=== PATIENT | female | born 1990 | race Caucasian/White ===

== ENCOUNTER 2020-01-08 19:27 | Emergency (ER) | payer MEDICAID ==
--- NOTE | 2020-01-08 20:00 | EDM.PDOC ---
ED HPI GENERAL MEDICAL PROBLEM - General Chief Complaint: General Stated Complaint: TOOTH PAIN Time Seen by Provider: 01/08/20 19:40 Source of Information: Reports: Patient History Limitations: Reports: No Limitations - History of Present Illness INITIAL COMMENTS - FREE TEXT/NARRATIVE: 29 YO WF presents to ER complaining of a toothache since 2pm today. Pt reports she has a broken 2nd right lower molar for approximately 6 months and today her tooth started to throb and became very painful prompting ER evaluation. Pt denies any swelling to her jaw or face and no drainage from tooth or mouth. Pt denies any other complaints at this time. Onset: Today Location: Reports: Face Quality: Reports: Ache Severity: Moderate Improves with: Reports: None Worsens with: Reports: None Associated Symptoms: Reports: No Other Symptoms Right Lower Tooth/Teeth Pain Score (Numeric/FACES): 8 - Related Data Allergies Allergy/AdvReac Type Severity Reaction Status Date / Time No Known Drug Allergies Allergy Other Verified 01/08/20 19:30 Home Meds: Home Meds Amoxicillin 500 mg PO TID #21 tab 01/08/20 [Rx] Hydrocodone/Acetaminophen [Hydrocodone-Acetamin 10-325 mg] 1 each PO Q6HR PRN # 5 tablet 01/08/20 [Rx] Past Medical History - Past Health History Medical/Surgical History: Denies Medical/Surgical History Psychiatric History: Reports: Anxiety, Depression Dermatologic History: Reports: Other (See Below) (Acne vulgaris) Social & Family History - Tobacco Use Smoking Status *Q: Former Smoker Used Tobacco, but Quit: Yes Month/Year Tobacco Last Used: November 2019 - Caffeine Use Caffeine Use: Reports: None - Recreational Drug Use Recreational Drug Use: No ED ROS GENERAL - Review of Systems Review Of Systems: See Below Constitutional: Reports: No Symptoms HEENT: Reports: Dental Pain Respiratory: Reports: No Symptoms Cardiovascular: Reports: No Symptoms Endocrine: Reports: No Symptoms GI/Abdominal: Reports: No Symptoms : Reports: No Symptoms Musculoskeletal: Reports: No Symptoms Skin: Reports: No Symptoms Neurological: Reports: No Symptoms Psychiatric: Reports: No Symptoms Hematologic/Lymphatic: Reports: No Symptoms Immunologic: Reports: No Symptoms ED EXAM, GENERAL - Physical Exam Exam: See Below Exam Limited By: No Limitations General Appearance: Alert, WD/WN, No Apparent Distress Nose: Normal Inspection, Normal Mucosa, No Blood Throat/Mouth: Other (broken lower right 2nd molar ) Head: Atraumatic, Normocephalic Neck: Normal Inspection, Supple, Non-Tender, Full Range of Motion Respiratory/Chest: No Respiratory Distress, Lungs Clear, Normal Breath Sounds, No Accessory Muscle Use, Chest Non-Tender Cardiovascular: Normal Peripheral Pulses, Regular Rate, Rhythm, No Edema, No Gallop, No JVD, No Murmur, No Rub GI/Abdominal: Normal Bowel Sounds, Soft, Non-Tender, No Organomegaly, No Distention, No Abnormal Bruit, No Mass Back Exam: Normal Inspection, Full Range of Motion, NT Extremities: Normal Inspection, Normal Range of Motion, Non-Tender, Normal Capillary Refill, No Pedal Edema Neurological: Alert, Oriented, CN II-XII Intact, Normal Cognition, Normal Gait, Normal Reflexes, No Motor/Sensory Deficits Psychiatric: Normal Affect, Normal Mood Skin Exam: Warm, Dry, Intact, Normal Color, No Rash Lymphatic: No Adenopathy Course - Vital Signs Last Recorded V/S: Last Vital Signs Temp 36.8 C 01/08/20 19:30 Pulse 89 01/08/20 19:30 Resp 20 01/08/20 19:30 BP 129/83 01/08/20 19:30 Pulse Ox 96 01/08/20 19:30 - Orders/Labs/Meds Meds: Medications Discontinued Medications Generic Name Dose Route Start Last Admin Trade Name Freq PRN Reason Stop Dose Admin Hydrocodone Bitart/Acetaminophen 5 tab 01/08/20 20:04 [place] 325-10 Mg PO 01/08/20 20:05 ONETIME ONE Amoxicillin 2,000 mg 01/08/20 20:04 Amoxil PO 01/08/20 20:05 ONETIME ONE Amoxicillin 500 mg 01/08/20 20:06 Amoxil PO 01/08/20 20:07 ONETIME ONE Ketorolac Tromethamine 60 mg 01/08/20 20:04 Toradol IM 01/08/20 20:05 ONETIME ONE Departure - Departure Time of Disposition: 20:14 Disposition: Home, Self-Care 01 Condition: Good Clinical Impression: Toothache - Discharge Information Prescriptions: Hydrocodone/Acetaminophen [Hydrocodone-Acetamin 10-325 mg] 1 each PO Q6HR PRN # 5 tablet PRN Reason: Pain Amoxicillin 500 mg PO TID #21 tab Instructions: Acute Pain, Adult Referrals: Reddy Schwartz MD [Physician] - Forms: ED Department Discharge Sepsis Event Note - Evaluation Sepsis Screening Result: No Definite Risk - Focused Exam Vital Signs: Vital Signs Temp Pulse Resp BP Pulse Ox 01/08/20 19:30 36.8 C 89 20 129/83 96 Date Exam was Performed: 01/08/20 Time Exam was Performed: 20:07 - Assessment/Plan Assessment:: 1. toothache-broken lower right 2nd molar Plan: 1. discharge home 2. Lortab 10/325 #10 every 6 hours as needed 3. amoxil 500mg every 8 hours x 7 days 4. ibuprofen 600mg every 6 hours x 5 days 5. follow up with dentist next 5-7 days for further evaluation and treatment 6. return to ER for worsening symptoms
[2020-01-08] MEDS ORDERED: Amoxicillin 500 MG Cap PO ONE ×2 (20:04→20:06)
[2020-01-08] MEDS ORDERED: Ketorolac 60 MG/2 ML SDV IM ONE (20:04)
[2020-01-08] MEDS ORDERED: Acetaminophen/HYDROcodone 325-10 MG Tab PO ONE (20:04)
== END 2020-01-08 20:45 | disposition home or self-care (01) ==
LOC: KA.ED 19:27
DX: K08.89 Other specified disorders of teeth and supporting structures (principal); Z87.891 Personal history of nicotine dependence
CPT/HCPCS: 96372; 99282; A9270-GY; J1885

== ENCOUNTER 2020-02-01 18:40 | Emergency (ER) | payer MEDICAID ==
[2020-02-01] MEDS ORDERED: Ondansetron 4 MG/2 ML SDV IVPUSH ONE (18:56)
[2020-02-01] MEDS ORDERED: Sodium Chloride 0.9% 1,000 ML IV ONE (18:57)
--- NOTE | 2020-02-01 19:18 | EDM.PDOC ---
ED HPI GENERAL MEDICAL PROBLEM - General Chief Complaint: General Stated Complaint: N/V, DIZZY, FEVER Time Seen by Provider: 02/01/20 19:13 Source of Information: Reports: Patient History Limitations: Reports: No Limitations - History of Present Illness INITIAL COMMENTS - FREE TEXT/NARRATIVE: Patient is a 29-year-old female who presents to the emergency department this evening via private vehicle with a complaint of nausea and vomiting. Patient states approximately 9 p.m. last evening she had an upset stomach and vomited. Had 3 episodes of vomiting in the last 24 hours. Patient states her stomach felt queasy, not really pain, and denies diarrhea or constipation. Patient states she is sexually active, however is on control. Patient has a history of frequent UTIs. Patient denies vaginal discharge, fever, out of area travel, flank pain, dysuria, shortness of breath, or any covid concerns. Onset: Gradual Onset Time: 21:00 Duration: Day(s): Location: Reports: Abdomen Quality: Reports: Ache Severity: Mild Improves with: Reports: None Worsens with: Reports: None Associated Symptoms: Reports: Nausea/Vomiting Right Lower Abdomen Pain Score (Numeric/FACES): 6 - Related Data Allergies Allergy/AdvReac Type Severity Reaction Status Date / Time No Known Drug Allergies Allergy Other Verified 02/01/20 19:16 Past Medical History - Past Health History Medical/Surgical History: Denies Medical/Surgical History Psychiatric History: Reports: Anxiety, Depression Dermatologic History: Reports: Other (See Below) (Acne vulgaris) Social & Family History - Caffeine Use Caffeine Use: Reports: None ED ROS GENERAL - Review of Systems Review Of Systems: Comprehensive ROS is negative, except as noted in HPI. Constitutional: Reports: No Symptoms HEENT: Reports: No Symptoms Respiratory: Reports: No Symptoms Cardiovascular: Reports: No Symptoms Endocrine: Reports: No Symptoms GI/Abdominal: Reports: Abdominal Pain, Nausea, Vomiting : Reports: No Symptoms Musculoskeletal: Reports: No Symptoms Skin: Reports: No Symptoms Neurological: Reports: No Symptoms Psychiatric: Reports: No Symptoms Hematologic/Lymphatic: Reports: No Symptoms Immunologic: Reports: No Symptoms ED EXAM, GENERAL - Physical Exam Exam: See Below Exam Limited By: No Limitations General Appearance: Alert, WD/WN, No Apparent Distress Throat/Mouth: Normal Inspection, Normal Oropharynx, No Airway Compromise Neck: Normal Inspection. No: Lymphadenopathy (L), Lymphadenopathy (R) Respiratory/Chest: No Respiratory Distress, Lungs Clear, Normal Breath Sounds, No Accessory Muscle Use, Chest Non-Tender Cardiovascular: Regular Rate, Rhythm, No Murmur GI/Abdominal: Normal Bowel Sounds, Soft, Non-Tender, No Organomegaly, No Distention, No Abnormal Bruit, No Mass Back Exam: Normal Inspection. No: CVA Tenderness (L), CVA Tenderness (R) Extremities: Normal Inspection Neurological: Alert, Oriented, Normal Cognition Psychiatric: Normal Affect, Normal Mood Skin Exam: Warm, Dry, Intact, Normal Color, No Rash Lymphatic: No Adenopathy Course - Vital Signs Last Recorded V/S: Last Vital Signs Temp 97 F 02/01/20 19:08 Pulse 96 02/01/20 19:08 Resp 18 02/01/20 19:08 BP 111/73 02/01/20 19:08 Pulse Ox 96 02/01/20 19:08 - Orders/Labs/Meds Orders: Active Orders 24 hr Category Date Time Status CULTURE URINE [RM] Stat Lab 02/01/20 20:03 Ordered Labs: Laboratory Tests 02/01/20 02/01/20 02/01/20 Range/Units 18:55 18:55 19:00 WBC 16.44 H (5.00-10.00) 10^3/uL RBC 4.39 (3.80-5.50) 10^6/uL Hgb 13.4 (12.0-16.0) g/dL Hct 39.1 (37.0-47.0) % MCV 89.1 (82.0-92.0) fL MCH 30.5 (27.0-31.0) pg MCHC 34.3 (32.0-36.0) g/dL RDW 11.8 (11.5-14.5) % Plt Count 207 (150-400) 10^3/uL MPV 10.3 (7.4-10.4) fL Immature Gran % (Auto) 0.2 (0.0-5.0) % Neut % (Auto) 87.0 H (50.0-70.0) % Lymph % (Auto) 8.7 L (20.0-40.0) % [place] % (Auto) 3.8 (2.0-8.0) % Eos % (Auto) 0.2 L (1.0-3.0) % Baso % (Auto) 0.1 (0.0-1.0) % Neut # (Auto) 14.32 H (2.50-7.00) 10^3/uL Lymph # (Auto) 1.43 (1.00-4.00) 10^3/uL [place] # (Auto) 0.62 (0.10-0.80) 10^3/uL Eos # (Auto) 0.03 L (0.10-0.30) 10^3/uL Baso # (Auto) 0.01 (0.00-0.10) 10^3/uL Immature Gran # (Auto) 0.03 (0.00-0.50) 10^3/uL Sodium 139 (136-145) mmol/L Potassium 3.4 (3.3-5.3) mmol/L Chloride 104 (98-115) mmol/L Carbon Dioxide 25.3 (21.0-32.0) mmol/L Anion Gap 13.1 (5-15) mmol/L BUN 11 (6-25) mg/dL Creatinine 0.65 (0.51-1.17) mg/dL Est Cr Clr Drug Dosing 114.91 mL/min Estimated GFR (MDRD) > 60 mL/min Glucose 91 (75 - 99) mg/dL Calcium 8.7 (8.7-10.3) mg/dL Total Bilirubin 0.5 (0.2-1.0) mg/dL AST 19 (15-37) U/L ALT 25 (12-78) U/L Alkaline Phosphatase 72 (46-116) IU/L Total Protein 8.2 (6.4-8.2) g/dL Albumin 4.61 (3.00-4.80) g/dL HCG, Quant 1 mIU/mL Specimen Type Urincc Urine Color Yellow (YELLOW) Urine Appearance Slightly cloudy H (CLEAR) Urine pH 5.5 (5.0-9.0) Ur Specific [place] 1.025 (1.005-1.030) Urine Protein Negative (NEGATIVE) mg/dL Urine Glucose (UA) Negative (NEGATIVE) mg/dL Urine Ketones Negative (NEGATIVE) mg/dL Urine Occult Blood Moderate H (NEGATIVE) Urine Nitrite Negative (NEGATIVE) Urine Bilirubin Negative (NEGATIVE) Urine Urobilinogen 0.2 (0.2-1.0) E.U./dL Ur Leukocyte Esterase Trace H (NEGATIVE) Urine RBC 5-10 H (0-5) /HPF Urine WBC 10-20 H (0-5) /HPF Ur Epithelial Cells Moderate H /LPF Amorphous Sediment Moderate H (0/HPF) /HPF Urine Bacteria Few (NONE TO FEW) /HPF 02/01/20 Range/Units 19:45 WBC (5.00-10.00) 10^3/uL RBC (3.80-5.50) 10^6/uL Hgb (12.0-16.0) g/dL Hct (37.0-47.0) % MCV (82.0-92.0) fL MCH (27.0-31.0) pg MCHC (32.0-36.0) g/dL RDW (11.5-14.5) % Plt Count (150-400) 10^3/uL MPV (7.4-10.4) fL Immature Gran % (Auto) (0.0-5.0) % Neut % (Auto) (50.0-70.0) % Lymph % (Auto) (20.0-40.0) % [place] % (Auto) (2.0-8.0) % Eos % (Auto) (1.0-3.0) % Baso % (Auto) (0.0-1.0) % Neut # (Auto) (2.50-7.00) 10^3/uL Lymph # (Auto) (1.00-4.00) 10^3/uL [place] # (Auto) (0.10-0.80) 10^3/uL Eos # (Auto) (0.10-0.30) 10^3/uL Baso # (Auto) (0.00-0.10) 10^3/uL Immature Gran # (Auto) (0.00-0.50) 10^3/uL Sodium (136-145) mmol/L Potassium (3.3-5.3) mmol/L Chloride (98-115) mmol/L Carbon Dioxide (21.0-32.0) mmol/L Anion Gap (5-15) mmol/L BUN (6-25) mg/dL Creatinine (0.51-1.17) mg/dL Est Cr Clr Drug Dosing mL/min Estimated GFR (MDRD) mL/min Glucose (75 - 99) mg/dL Calcium (8.7-10.3) mg/dL Total Bilirubin (0.2-1.0) mg/dL AST (15-37) U/L ALT (12-78) U/L Alkaline Phosphatase (46-116) IU/L Total Protein (6.4-8.2) g/dL Albumin (3.00-4.80) g/dL HCG, Quant mIU/mL Specimen Type Urincc Urine Color Yellow (YELLOW) Urine Appearance Slightly cloudy H (CLEAR) Urine pH 6.0 (5.0-9.0) Ur Specific [place] 1.025 (1.005-1.030) Urine Protein Negative (NEGATIVE) mg/dL Urine Glucose (UA) Negative (NEGATIVE) mg/dL Urine Ketones 15 H (NEGATIVE) mg/dL Urine Occult Blood Moderate H (NEGATIVE) Urine Nitrite Negative (NEGATIVE) Urine Bilirubin Negative (NEGATIVE) Urine Urobilinogen 0.2 (0.2-1.0) E.U./dL Ur Leukocyte Esterase Negative (NEGATIVE) Urine RBC 5-10 H (0-5) /HPF Urine WBC 5-10 H (0-5) /HPF Ur Epithelial Cells Moderate H /LPF Amorphous Sediment Few (0/HPF) /HPF Urine Bacteria Few (NONE TO FEW) /HPF Meds: Medications Discontinued Medications Generic Name Dose Route Start Last Admin Trade Name Freq PRN Reason Stop Dose Admin Ceftriaxone Sodium 1 gm 02/01/20 19:30 02/01/20 19:55 Rocephin IVPUSH 02/01/20 19:31 1 gm ONETIME ONE Administration Sodium Chloride 1,000 mls @ 999 mls/hr 02/01/20 18:57 02/01/20 19:08 Normal Saline IV 02/01/20 19:57 999 mls/hr .BOLUS ONE Administration Ketorolac Tromethamine 30 mg 02/01/20 19:30 02/01/20 19:51 Toradol IVPUSH 02/01/20 19:31 30 mg ONETIME ONE Administration Ondansetron HCl 4 mg 02/01/20 18:56 02/01/20 19:08 Zofran IVPUSH 02/01/20 18:57 4 mg ONETIME ONE Administration Ondansetron HCl 8 mg 02/01/20 20:07 Zofran Odt PO 02/01/20 20:08 ONETIME ONE - Re-Assessments/Exams Free Text/Narrative Re-Assessment/Exam: 02/01/20 20:07 Patient afebrile, vital signs stable, nausea resolved. She will follow-up with PCP Departure - Departure Time of Disposition: 20:08 Disposition: Home, Self-Care 01 Condition: Good Clinical Impression: UTI, Urinary tract infectious disease - Discharge Information Instructions: Urinary Tract Infection, Adult, [id number] Referrals: Callie Barone MD [Primary Care Provider] - Forms: ED Department Discharge Additional Instructions: Follow-up with Dr. Estrada in 3-5 days for recheck. Return to emergency department sooner symptoms continue or worsen. Sepsis Event Note - Evaluation Sepsis Screening Result: Possible Sepsis Risk - Focused Exam Vital Signs: Vital Signs Temp Pulse Resp BP Pulse Ox 02/01/20 19:08 97 F 96 18 111/73 96 Date Exam was Performed: 02/01/20 Time Exam was Performed: 20:09 - My Orders Last 24 Hours: My Active Orders 02/01/20 20:03 CULTURE URINE [RM] Stat - Assessment/Plan Last 24 Hours: My Active Orders 02/01/20 20:03 CULTURE URINE [RM] Stat Assessment:: Urinary tract infection Plan: Follow-up with PCP
[2020-02-01 19:28] LABS: ANION GAP 13.1 mmol/L (5-15); CHLORIDE,CL 104 mmol/L (98-115); SODIUM,NA 139 mmol/L (136-145)
[2020-02-01] MEDS ORDERED: cefTRIAXone 1 GM Vial IVPUSH ONE (19:30)
[2020-02-01] MEDS ORDERED: Ketorolac 30 MG/ML SDV IVPUSH ONE (19:30)
[2020-02-01] MEDS ORDERED: Ondansetron 4 MG Tab.DIS PO ONE (20:07)
== END 2020-02-01 20:27 | disposition home or self-care (01) ==
LOC: KA.ED 18:40
DX: N39.0 Urinary tract infection, site not specified (principal)
CPT/HCPCS: 80053; 81001; 84702; 85025; 87086; 96361; 96374; 96375; 99284; A9270; J0696; J1885; J2405; J7030

== ENCOUNTER 2020-03-18 18:43 | Emergency (ER) | payer MEDICAID ==
[2020-03-18] MEDS ORDERED: Ketorolac 30 MG/ML SDV IM ONE (19:07)
[2020-03-18] MEDS ORDERED: Ketorolac 10 MG Tab PO PRN (19:08)
[2020-03-18] MEDS ORDERED: Ketorolac 10 MG Tab PO ONE (19:15)
--- NOTE | 2020-03-18 19:20 | EDM.PDOC ---
ED HPI GENERAL MEDICAL PROBLEM - General Chief Complaint: ENT Problem Stated Complaint: TOOTH PAIN Time Seen by Provider: 03/18/20 19:00 Source of Information: Reports: Patient History Limitations: Reports: No Limitations - History of Present Illness INITIAL COMMENTS - FREE TEXT/NARRATIVE: 29-year-old female presents emergency room with dental pain. She reports over the last 24-36 hours she's had increasing pain in her bottom right molar. She reports that the tooth has been falling apart for some time. She has been trying to take Tylenol without relief of pain. She has not seen a dentist for some time recently. She denies any facial numbness or tingling or swelling. No fever or chills. 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 [No Known Home Meds] 03/18/20 [History] Past Medical History - Past Health History Medical/Surgical History: Denies Medical/Surgical History Psychiatric History: Reports: Anxiety, Depression Dermatologic History: Reports: Other (See Below) (Acne vulgaris) Social & Family History - Caffeine Use Caffeine Use: Reports: None ED ROS ENT - Review of Systems Review Of Systems: Comprehensive ROS is negative, except as noted in HPI. ED EXAM, ENT - Physical Exam Exam: See Below Exam Limited By: No Limitations General Appearance: Alert, WD/WN, No Apparent Distress Eye Exam: Bilateral Eye: EOMI, PERRL Ears: Normal External Exam, Normal TMs Nose: Normal Inspection Mouth/Throat: Dental Tenderness (Molar #[id number]). No: Bleeding, Gum Swelling, Lip Swelling, Oral Ulcers, Peritonsillar Mass, Pharyngeal Erythema Head: Atraumatic, Normocephalic Neck: Normal Inspection, Supple, Non-Tender, Full Range of Motion, Lymphadenopathy (L). No: Lymphadenopathy (R) Course - Vital Signs Last Recorded V/S: Last Vital Signs Temp 98.9 F 03/18/20 19:09 Pulse 75 03/18/20 19:09 Resp 22 H 03/18/20 19:09 BP 107/66 03/18/20 19:09 Pulse Ox 96 03/18/20 19:09 - Orders/Labs/Meds Orders: Active Orders 24 hr Category Date Time Status Ketorolac [Toradol] Med 03/18/20 19:08 Active 10 mg PO Q6H PRN cephALEXin [Keflex] Med 03/18/20 23:00 Active 2,000 mg PO Q6HR Medication Orders Cephalexin (Keflex) 2,000 mg PO Q6HR YULIYA Ketorolac Tromethamine (Toradol) 10 mg PO Q6H PRN PRN Reason: Pain (severe 7-10) Stop: 03/23/20 19:09 Meds: Medications Generic Name Dose Route Start Last Admin Trade Name Freq PRN Reason Stop Dose Admin Cephalexin 2,000 mg 03/18/20 23:00 Keflex PO Q6HR YULIYA Ketorolac Tromethamine 10 mg 03/18/20 19:08 Toradol PO 03/23/20 19:09 Q6H PRN Pain (severe 7-10) Discontinued Medications Generic Name Dose Route Start Last Admin Trade Name Freq PRN Reason Stop Dose Admin Cephalexin 500 mg 03/18/20 23:00 Keflex PO Q6HR YULIYA Ketorolac Tromethamine 30 mg 03/18/20 19:07 Toradol IM 03/18/20 19:08 ONETIME ONE Departure - Departure Time of Disposition: 19:19 Disposition: Home, Self-Care 01 Condition: Good Clinical Impression: Pain due to dental caries - Discharge Information Instructions: Dental Abscess Forms: ED Department Discharge Sepsis Event Note (ED) - Evaluation Sepsis Screening Result: No Definite Risk - Focused Exam Vital Signs: Vital Signs Temp Pulse Resp BP Pulse Ox 03/18/20 19:09 98.9 F 75 22 H 107/66 96 - My Orders Last 24 Hours: My Active Orders 03/18/20 19:08 Ketorolac [Toradol] 10 mg PO Q6H PRN 03/18/20 23:00 cephALEXin [Keflex] 2,000 mg PO Q6HR - Assessment/Plan Last 24 Hours: My Active Orders 03/18/20 19:08 Ketorolac [Toradol] 10 mg PO Q6H PRN 03/18/20 23:00 cephALEXin [Keflex] 2,000 mg PO Q6HR Assessment:: Dental pain due to caries Plan: 1. Toradol 30 mg IM 2. Patient to be discharged to home on Toradol 10 mg by mouth every 8 hours when necessary for pain 3. Keflex 500 mg 3 times a day prophylaxis 4. Follow-up with a dentist Friday.
[2020-03-18] MEDS ORDERED: Cephalexin 250 MG Cap PO ONE (19:32)
[2020-03-18] MEDS ORDERED: Cephalexin 250 MG Cap PO SCH ×2 (23:00)
== END 2020-03-18 19:40 | disposition home or self-care (01) ==
LOC: KA.ED 18:43
DX: K02.9 Dental caries, unspecified (principal)
CPT/HCPCS: 96372; 99282; 99283; A9270-GY; J1885